=== PATIENT | female | born 1995 | race Hispanic/Latino ===

== ENCOUNTER 2017-11-03 09:38 | Emergency (ER) | payer SELFPAY ==
[2017-11-03 10:47] LABS: #Basophils 0.1 thou/uL (0.0-0.2); #Monocytes 0.5 thou/uL (0.11-0.59); %Basophils 1.2 % (0.0-1.0); %Eosinophils 0.2 % (0.0-10.0); %Lymphocytes 11.2 % (21.0-51.0); %Monocytes 5.3 % (0.0-10.0); Hemoglobin 17.6 g/dL (12.0-16.0); Mean Corpuscular HGB CONC 32.8 g/dL (32.0-36.0); Mean Corpuscular Hemoglobin 28.3 pg (27.0-31.0); Mean Corpuscular Volume 86.2 fl (81.0-99.0); Platelet Count 254 thou/uL (130-400); RBC Distribution Width 12.4 % (11.5-14.5); Red Blood Cell (RBC) Count 6.21 mill/uL (4.20-5.40); White Blood Cell (WBC) Count 8.5 thou/uL (4.8-10.8)
[2017-11-03 11:13] LABS: ALT (SGPT) 33 U/L (8-55); AST (SGOT) 29 U/L (5-34); Albumin 4.8 g/dL (3.5-5.0); Alkaline Phosphatase 85 U/L (40-150); Anion Gap 15 mmol/L (10-20); BUN (Urea Nitrogen) 13 mg/dL (7.0-18.7); Bilirubin, Total 0.6 mg/dL (0.2-1.2); Calc. Creatinine Clearance 0 mL/min (70-130); Calcium 10.1 mg/dL (7.8-10.44); Carbon Dioxide 22 mmol/L (22-29); Chloride 102 mmol/L (98-107); Estimated GFR-MDRD 50; Globulin 3.9 g/dL (2.4-3.5); Glucose 121 mg/dL (70-105); Lipase 13 U/L (8-78); Potassium 3.5 mmol/L (3.5-5.1); Protein, Total 8.7 g/dL (6.0-8.3); Sodium 135 mmol/L (136-145)
[2017-11-03] MEDS ORDERED: Diphenoxylate HCl/Atropine Tablet ONE (11:52)
[2017-11-03] MEDS ORDERED: Acetaminophen 500 MG TAB ONE (12:40)
[2017-11-03 13:39] LABS: Bilirubin Small (Negative); Blood, Urine Negative (Negative); Glucose, Urine (Dipstick) Negative (Negative); Leukocyte Negative (Negative); Nitrite Negative (Negative); Protein, Urine (Dipstick) 100 mg/dL (Neg-Trace); Urobilinogen 0.2 mg/dL (0.2-1.0)
[2017-11-03] MEDS ORDERED: Ondansetron HCl/PF 4 MG/2 ML Vial ONE (13:40)
[2017-11-03 13:42] LABS: Clarity Clear (Clear)
[2017-11-03 13:43] LABS: Pregnancy Test - Urine (BHCG) Negative (Negative); Pregu Control Background? CLEAR/WHITE (CLR/WHITE); Pregu Control Bar Appear? YES (CONTROL BAR); Specific Gravity 1.029 (1.002-1.036); Specific Gravity, Urine 1.029 (1.002-1.036)
[2017-11-03 13:47] LABS: Other Microscopic Description Less than 2 mL rec'd
[2017-11-03 13:48] LABS: Bacteria/HPF None Seen HPF (None Seen); Hyaline Casts/LPF NONE SEEN LPF (0-3 Hyaline); RBC/HPF 0-3 HPF (0-3); Squamous Epithelial 0-3 HPF (0-3); WBC/HPF 0-3 HPF (0-3)
== END 2017-11-03 15:28 | disposition home or self-care (01) ==
LOC: ERS 09:38
DX: R19.7 Diarrhea, unspecified (principal)
CPT/HCPCS: 36415; 80053; 81003; 81015; 81025; 83690; 85025; 87045; 87046; 87449; 87899; 96361; 96374; J2405

== ENCOUNTER 2020-09-26 17:09 | Inpatient (IN) | payer SELFPAY ==
[2020-09-26 18:36] LABS: #Eosinphils 0.1 thou/uL (0.0-0.7); #Lymphocytes 1.9 thou/uL (1.20-3.40); #Monocytes 0.7 thou/uL (0.11-0.59); #Neutrophils 6.7 thou/uL (1.40-6.50); %Basophils 0.2 % (0.0-1.0); %Eosinophils 1.4 % (0.0-10.0); %Lymphocytes 19.9 % (21.0-51.0); %Monocytes 7.4 % (0.0-10.0); %Neutrophils 71.2 % (42.0-75.0); Mean Corpuscular HGB CONC 35.6 g/dL (32.0-36.0); Mean Corpuscular Hemoglobin 28.9 pg (27.0-31.0); Mean Corpuscular Volume 81.2 fL (78.0-98.0); Mean Platelet Volume 8.7 fL (7.4-10.4); Platelet Count 335 thou/uL (130-400); RBC Distribution Width 15.7 % (11.5-14.5); Red Blood Cell (RBC) Count 5.87 mill/uL (4.20-5.40); White Blood Cell (WBC) Count 9.5 thou/uL (4.8-10.8)
--- NOTE | 2020-09-26 18:42 | RAD ---
XR Chest 1 View Portable HISTORY: Hyperglycemia, nausea, vomiting, abdominal pain, weakness, shortness of breath COMPARISON: None FINDINGS: The heart size is normal. The lungs are well expanded without focal areas of consolidation, pneumothorax or pleural effusions. IMPRESSION: No radiographic evidence of acute cardiopulmonary process.
[2020-09-26 19:00] LABS: Bacteria/HPF 1+ HPF (None Seen); Bilirubin Negative (Negative); Blood, Urine 2+ (Negative); Clarity Clear (Clear); Glucose, Urine (Dipstick) Greater than 1000 mg/dL (Negative); Ketone, Urine Greater than 150 mg/dL (Negative); Leukocyte 500 Leu/uL (Negative); Nitrite Negative (Negative); Pregnancy Test - Urine (BHCG) Negative (Negative); Pregu Control Background? CLEAR/WHITE (CLR/WHITE); Pregu Control Bar Appear? YES (CONTROL BAR); Protein, Urine (Dipstick) 50 mg/dL (Neg-Trace); Specific Gravity 1.031 (1.002-1.036); Specific Gravity, Urine 1.031 (1.002-1.036); Squamous Epithelial 0-3 HPF (0-3); Urobilinogen Normal mg/dL (Less than 2); WBC/HPF 21-50 HPF (0-3); pH, Urine 5.5 (5.0-9.0)
[2020-09-26 19:02] LABS: ALT (SGPT) 18 U/L (8-55); AST (SGOT) 14 U/L (5-34); Albumin 4.6 g/dL (3.5-5.0); Alkaline Phosphatase 229 U/L (40-110); Anion Gap 27 mmol/L (10-20); BUN (Urea Nitrogen) 6 mg/dL (7.0-18.7); Bilirubin, Total 0.5 mg/dL (0.2-1.2); CK (CPK) 39 U/L (29-168); Calc. Creatinine Clearance 0 mL/min (70-130); Calcium 9.8 mg/dL (7.8-10.44); Chloride 104 mmol/L (98-107); Globulin 3.4 g/dL (2.4-3.5); Glucose 453 mg/dL (70-105); Magnesium 2.3 mg/dL (1.6-2.6); Potassium 4.6 mmol/L (3.5-5.1); Sodium 135 mmol/L (136-145)
[2020-09-26 19:19] LABS: Carbon Dioxide 9 mmol/L (22-29)
[2020-09-26] MEDS ORDERED: INSULIN REGULAR IN 0.9 % NACL 100 UNIT/100 ML BAG ONE (20:16)
[2020-09-26] MEDS ORDERED: NS 0.9% w/ 20 MEQ KCL 1,000 ML/1,000 ML BAG IV PRN (21:45)
[2020-09-26] MEDS ORDERED: Electrolyte Replacement Protocol 1 EACH IVPB ONE (22:06)
[2020-09-26] MEDS ORDERED: NS 0.9% w/ 20 MEQ KCL 1,000 ML IV PRN ×2 (22:06)
[2020-09-26] MEDS ORDERED: D5 1/2 NS w/20 mEq KCL 1,000 ML IV PRN (22:06)
[2020-09-26] MEDS ORDERED: Sodium Chloride 0.9% 1,000 ML IV PRN ×4 (22:06)
[2020-09-26] MEDS ORDERED: Dextrose 5 %-0.45 % NaCl 1,000 ML IV PRN (22:06)
[2020-09-26] MEDS ORDERED: HYDROcodone/Acetaminophen 5/325 mg Tablet PO PRN (22:07)
[2020-09-26] MEDS ORDERED: Promethazine HCl 12.5 MG in Sodium Chloride 0.9% 50 ML IVPB PRN (22:07)
[2020-09-26] MEDS ORDERED: Guaifenesin DM 100-10/5 ML UDCUP PO PRN (22:07)
[2020-09-26] MEDS ORDERED: Ondansetron PF 4 MG/2 ML Vial IVP PRN (22:07)
[2020-09-26] MEDS ORDERED: Morphine 2 MG/ML VIAL SLOW IVP PRN (22:07)
[2020-09-26] MEDS ORDERED: Labetalol HCl 100 MG/20 ML VIAL SLOW IVP PRN (22:07)
[2020-09-26] MEDS ORDERED: hydrALAZINE 20 MG/ML VIAL SLOW IVP PRN (22:07)
[2020-09-26] MEDS ORDERED: cloNIDine 0.1 MG TAB PO PRN (22:07)
[2020-09-26 22:52] VITALS: BMI 46.4
[2020-09-26 22:54] LABS: Anion Gap 24 mmol/L (10-20); BUN (Urea Nitrogen) 5 mg/dL (7.0-18.7); Calc. Creatinine Clearance 166 mL/min (70-130); Calcium 8.9 mg/dL (7.8-10.44); Chloride 112 mmol/L (98-107); Glucose 166 mg/dL (70-105); Potassium 3.5 mmol/L (3.5-5.1); Sodium 141 mmol/L (136-145)
[2020-09-26 23:05] LABS: Carbon Dioxide 9 mmol/L (22-29)
[2020-09-26 23:12] LABS: BHCG - Serum Negative (NEGATIVE); Pregs Control Background? CLEAR/WHITE (CLR/WHITE); Pregs Control Bar Appear? YES (CONTROL BAR)
--- NOTE | 2020-09-26 23:23 | PDOC.HHP ---
Hospitalist HPI - History of Present Illness nausea, vomiting, abdominal pain History of Present Illness: Patient is a 25 year old female with PMH preeclampsia who presents to ED for nausea, vomiting, abdominal pain, weakness, SOB x 2 days. In ED, blood sugar checked and 384, she has FH of DM but denies personal history of DM or GDM. In ED, labs significant for CO2 of 9, anion gap 27, cr 1.44, glucose elevated, UA positive for UTI, CXR negative, patient to be admitted for new DM and DKA. Hospitalist ROS - Review of Systems Constitutional: reports: weakness, malaise Eyes: denies: pain, vision change, conjunctivae inflammation, eyelid inflammation, redness, other ENT: denies: ear pain, ear discharge, nose pain, nose discharge, nose congestion, mouth pain, mouth swelling, throat pain, throat swelling, other Respiratory: denies: cough, dry, shortness of breath, hemoptysis, SOB with excertion, pleuritic pain, sputum, wheezing, other Cardiovascular: denies: chest pain, palpitations, orthopnea, paroxysmal noc. dyspnea, edema, light headedness, other Gastrointestinal: denies: nausea, vomiting, abdominal pain, diarrhea, constipation, melena, hematochezia, other Genitourinary: reports: dysuria. denies: frequency, incontinence, hematuria, retention, other Musculoskeletal: denies: neck pain, shoulder pain, arm pain, back pain, hand pain, leg pain, foot pain, other Skin: denies: rash, lesions, mary ellen, bruising, other Neurological: denies: weakness, numbness, incoordination, change in speech, confusion, seizures, other All other systems reviewed; all pertinent +/- noted in HPI/Subj - Medication Medications: none Hospitalist History - Past Medical History Other Medical History: preeclampsia - Past Surgical History Past Surgical History: reports: no pertinent history - Family History Family History: reports: no pertinent history - Social History Smoking Status: Never smoker Alcohol: reports: None Drugs: reports: none - Exam General Appearance: NAD, awake alert Eye: PERRL, anicteric sclera ENT: normocephalic atraumatic, no oropharyngeal lesions, moist mucosa Neck: supple, symmetric, no JVD, no thyromegaly, no lymphadenopathy, no carotid bruit Heart: RRR, no murmur, no gallops, no rubs, normal peripheral pulses Respiratory: CTAB, no wheezes, no rales, no ronchi, normal chest expansion, no tachypnea, normal percussion Gastrointestinal: soft, non-tender, non-distended, normal bowel sounds, no palpable masses, no hepatomegaly, no splenomegaly, no bruit Extremities: no cyanosis, no clubbing, no edema Skin: normal turgor, no lesions, no rashes Neurological: cranial nerve grossly intact, normal sensation to touch, no weakness, no focal deficits, no new deficit Musculoskeletal: normal tone, normal strength, no muscle wasting Psychiatric: normal affect, normal behavior, A&O x 3 Hospitalist Results - Labs Result Diagrams: 09/26/20 18:18 09/26/20 22:27 Lab results: WBC 9.5 thou/uL (4.8-10.8) 09/26/20 18:18 Hgb 17.0 g/dL (12.0-16.0) H 09/26/20 18:18 Hct 47.7 % (36.0-47.0) H 09/26/20 18:18 MCV 81.2 fL (78.0-98.0) 09/26/20 18:18 Plt Count 335 thou/uL (130-400) 09/26/20 18:18 Neutrophils % 71.2 % (42.0-75.0) 09/26/20 18:18 Sodium 141 mmol/L (136-145) 09/26/20 22:27 Potassium 3.5 mmol/L (3.5-5.1) 09/26/20 22:27 Chloride 112 mmol/L (98-107) H 09/26/20 22:27 Carbon Dioxide 9 mmol/L (22-29) L* 09/26/20 22:27 BUN 5 mg/dL (7.0-18.7) L 09/26/20 22:27 Creatinine 1.02 mg/dL (0.6-1.1) 09/26/20 22:27 Glucose 166 mg/dL (70-105) H 09/26/20 22:27 Calcium 8.9 mg/dL (7.8-10.44) 09/26/20 22:27 Total Bilirubin 0.5 mg/dL (0.2-1.2) 09/26/20 18:18 AST 14 U/L (5-34) 09/26/20 18:18 ALT 18 U/L (8-55) 09/26/20 18:18 Alkaline Phosphatase 229 U/L (40-110) H 09/26/20 18:18 Creatine Kinase 39 U/L (29-168) 09/26/20 18:18 Troponin I Less than 0.010 ng/mL (< 0.028) 09/26/20 18:18 Serum Total Protein 8.0 g/dL (6.0-8.3) 09/26/20 18:18 Albumin 4.6 g/dL (3.5-5.0) 09/26/20 18:18 Urine Ketones Greater than 150 mg/dL (Negative) A 09/26/20 18:36 Urine Blood 2+ (Negative) A 09/26/20 18:36 Urine Nitrite Negative (Negative) 09/26/20 18:36 Ur Leukocyte Esterase 500 Nuria/uL (Negative) A 09/26/20 18:36 Urine RBC 11-20 HPF (0-3) A 09/26/20 18:36 Urine WBC 21-50 HPF (0-3) A 09/26/20 18:36 Ur Squamous Epith Cells 0-3 HPF (0-3) 09/26/20 18:36 Urine Bacteria 1+ HPF (None Seen) A 09/26/20 18:36 Additional comment: VITAL SIGNS Fri Sep 26, 2020 17:12 HUMBERTO Thompson, Janice BP: 133/93 Pulse: 115 Resp: 20 Temp: 98.0 (Oral) Pain: 0 O2 sat: 98 on (Room Air) Time: 09/26/2020 17:12. Hospitalist H&P A/P - Plan Plan: Patient is a 25 year old female with PMH preeclampsia who presents to ED for nausea, vomiting, abdominal pain, weakness, SOB x 2 days. # DKA # new onset DM # UTI # FLORENCE - nausea, vomiting, abdominal pain, weakness, SOB x 2 days, blood sugar 384 in ED, she has FH of DM but denies personal history of DM or GDM. In ED, labs significant for CO2 of 9, anion gap 27, cr 1.44, glucose elevated, UA positive for UTI, CXR negative, patient to be admitted for new DM and DKA. - admit to IMCU - insulin gtt - ceftriaxone # DVT/GI ppx
[2020-09-26] MEDS: HUMULIN R 100 UNITS in Sodium Chloride 0.9% 100 ML IVPB SCH (23:35)
[2020-09-27 02:51] LABS: Anion Gap 21 mmol/L (10-20); BUN (Urea Nitrogen) 4 mg/dL (7.0-18.7); Calc. Creatinine Clearance 184 mL/min (70-130); Calcium 8.3 mg/dL (7.8-10.44); Chloride 114 mmol/L (98-107); Glucose 180 mg/dL (70-105); Potassium 3.5 mmol/L (3.5-5.1); Sodium 139 mmol/L (136-145)
[2020-09-27 02:58] LABS: Carbon Dioxide 8 mmol/L (22-29)
[2020-09-27] MEDS: HUMULIN R 100 UNITS in Sodium Chloride 0.9% 100 ML IVPB SCH ×2 (03:03→04:02)
[2020-09-27 04:16] LABS: SARS-CoV-2 PCR by NAA Not Detected (NotDetected)
[2020-09-27] MEDS ORDERED: Midazolam HCl 5 mg/ml Vial ONE (04:27)
[2020-09-27] MEDS ORDERED: HYDROcodone/Acetaminophen 5/325 mg Tablet ONE (05:32)
[2020-09-27 06:24] LABS: #Eosinphils 0.1 thou/uL (0.0-0.7); #Monocytes 0.6 thou/uL (0.11-0.59); #Neutrophils 5.2 thou/uL (1.40-6.50); %Basophils 0.3 % (0.0-1.0); %Lymphocytes 25.7 % (21.0-51.0); %Monocytes 7.8 % (0.0-10.0); %Neutrophils 65.2 % (42.0-75.0); Hemoglobin 14.4 g/dL (12.0-16.0); Mean Corpuscular HGB CONC 34.4 g/dL (32.0-36.0); Mean Corpuscular Hemoglobin 28.1 pg (27.0-31.0); Mean Corpuscular Volume 81.7 fL (78.0-98.0); Mean Platelet Volume 8.2 fL (7.4-10.4); Platelet Count 257 thou/uL (130-400); RBC Distribution Width 15.9 % (11.5-14.5); Red Blood Cell (RBC) Count 5.12 mill/uL (4.20-5.40); White Blood Cell (WBC) Count 7.9 thou/uL (4.8-10.8)
[2020-09-27 06:39] LABS: Anion Gap 19 mmol/L (10-20); BUN (Urea Nitrogen) Less than 4 mg/dL (7.0-18.7); Calc. Creatinine Clearance 174 mL/min (70-130); Calcium 8.2 mg/dL (7.8-10.44); Chloride 112 mmol/L (98-107); Glucose 347 mg/dL (70-105); Potassium 3.3 mmol/L (3.5-5.1); Sodium 136 mmol/L (136-145)
[2020-09-27 06:40] LABS: Anion Gap 19 mmol/L (10-20); BUN (Urea Nitrogen) Less than 4 mg/dL (7.0-18.7); Calc. Creatinine Clearance 167 mL/min (70-130); Calcium 8.3 mg/dL (7.8-10.44); Chloride 111 mmol/L (98-107); Glucose 348 mg/dL (70-105); Magnesium 1.9 mg/dL (1.6-2.6); Potassium 3.2 mmol/L (3.5-5.1); Sodium 136 mmol/L (136-145)
[2020-09-27 06:45] LABS: Carbon Dioxide 8 mmol/L (22-29)
[2020-09-27 06:46] LABS: Carbon Dioxide 9 mmol/L (22-29)
[2020-09-27] MEDS ORDERED: INSULIN REGULAR IN 0.9 % NACL 100 UNIT/100 ML BAG ONE (07:36)
[2020-09-27] MEDS ORDERED: Famotidine 20 MG TAB ONE (07:51)
[2020-09-27] MEDS: Famotidine 20 MG TAB PO SCH ×2 (08:09→19:26)
[2020-09-27] MEDS ORDERED: FLU VACC QS2020-21(6MOS UP)/PF 60 MCG/0.5 ML SYRINGE IM ONE (09:00)
[2020-09-27] MEDS: Heparin 5,000 UNITS/ML VIAL SC SCH ×2 (11:13→21:08)
[2020-09-27 12:15] LABS: Anion Gap 19 mmol/L (10-20); BUN (Urea Nitrogen) Less than 4 mg/dL (7.0-18.7); Calc. Creatinine Clearance 199 mL/min (70-130); Calcium 8.6 mg/dL (7.8-10.44); Carbon Dioxide 10 mmol/L (22-29); Chloride 114 mmol/L (98-107); Glucose 139 mg/dL (70-105); Potassium 3.6 mmol/L (3.5-5.1); Sodium 139 mmol/L (136-145)
[2020-09-27] MEDS ORDERED: Dextrose 5% in Water 1,000 ML IV PRN (12:58)
[2020-09-27] MEDS ORDERED: Dextrose 50% Abboject 50 ML SYRINGE SLOW IVP PRN (12:58)
[2020-09-27] MEDS ORDERED: Insulin Regular 300 UNITS/3 ML VIAL ONE (14:56)
[2020-09-27] MEDS: Insulin Regular 300 UNITS/3 ML VIAL SC PRN ×2 (15:04→21:08)
--- NOTE | 2020-09-27 15:15 | PDOC.HOSPP ---
- Subjective Encounter Date: 09/27/20 Encounter Time: 15:09 Subjective: This is a 25-year-old woman who was admitted to the hospital with nausea, vomiting. She has evidence of a urinary tract infection and acute kidney injury. She also was found to have new onset diabetes. She had anion gap me tabolic acidosis. She has been receiving insulin drip and her electrolytes seems to be improving. We will recheck her BMP and make adjustments to her insulin regimen. She is on IV Rocephin for the UTI. Her renal function appears back to baseline. - Objective Vital Signs & Weight: Vital Signs (12 hours) Temp Pulse Resp BP Pulse Ox 09/27/20 06:00 98.9 F 20 126/94 H 97 09/27/20 04:10 97 09/27/20 04:02 98.3 F 82 18 129/78 97 Weight Admit Weight 279 lb 1.683 oz Weight 279 lb 1.683 oz I&O: 09/26/20 09/27/20 09/28/20 06:59 06:59 06:59 Intake Total 2100 100 Output Total 1300 300 Balance 800 -200 Result Diagrams: 09/27/20 06:10 09/27/20 11:41 Additional Labs: Accuchecks 09/27/20 09/27/20 09/27/20 14:54 13:37 12:24 POC Glucose 246 H 88 113 H 09/27/20 09/27/20 09/27/20 10:55 09:42 07:02 POC Glucose 138 H 169 H 256 H 09/27/20 09/27/20 09/27/20 05:14 04:02 03:09 POC Glucose 313 H 275 H 224 H 09/27/20 09/27/20 09/26/20 01:34 00:26 21:43 POC Glucose 152 H 106 H 240 H Radiology Reviewed by me: Yes EKG Reviewed by me: Yes Hospitalist ROS - Review of Systems Constitutional: reports: weakness Genitourinary: reports: dysuria Neurological: reports: weakness - Medication Medications: Active Medications Generic Name Dose Route Start Last Admin Trade Name Freq PRN Reason Stop Dose Admin Hydrocodone Bitart/Acetaminophen 1 tab 09/26/20 22:07 09/27/20 05:36 Hydrocodone/Acetaminophen 5/325 Mg Tablet PO 1 tab Q4H PRN Administration Moderate Pain (4-6) Famotidine 20 mg 09/27/20 09:00 09/27/20 08:09 Famotidine 20 Mg Tab PO 20 mg BID DEVIN Administration Heparin Sodium (Porcine) 5,000 units 09/27/20 09:00 09/27/20 11:13 Heparin 5,000 Units/Ml Vial SC 5,000 units BID DEVIN Administration Potassium Chloride/Dextrose/Sod Cl 1,000 mls @ 250 mls/hr 09/26/20 22:06 09/27/20 03:21 D5 1/2 Ns W/20 Meq Kcl IV 1,000 mls .Q4H PRN Administration Step 4 of DKA Protocol Protocol Potassium Chloride/Sodium Chloride 1,000 mls @ 500 mls/hr 09/26/20 22:06 09/27/20 00:11 Ns 0.9% W/ 20 Meq Kcl IV 1,000 mls .Q2H PRN Administration Step 2 of DKA Protocol Protocol Insulin Human Regular 100 101 mls @ 0 mls/hr 09/26/20 22:15 09/27/20 04:02 units/ Sodium Chloride IVPB 101 mls INF DEVIN Administration Protocol Titrate - Exam General Appearance: awake alert Eye: PERRL, anicteric sclera ENT: normocephalic atraumatic, no oropharyngeal lesions Neck: supple, symmetric, no JVD Heart: RRR, no murmur Respiratory: CTAB, no wheezes, no rales Gastrointestinal: soft, non-tender, non-distended, normal bowel sounds Neurological: cranial nerve grossly intact, normal sensation to touch Musculoskeletal: normal tone Psychiatric: normal affect, normal behavior, A&O x 3 Hosp A/P (1) UTI (urinary tract infection) Status: Acute Qualifiers: Urinary tract infection type: acute cystitis Hematuria presence: with hematuria Qualified Code(s): N30.01 - Acute cystitis with hematuria Plan: She is on IV Rocephin. Follow-up urine culture. (2) FLORENCE (acute kidney injury) Code(s): N17.9 - ACUTE KIDNEY FAILURE, UNSPECIFIED Status: Acute Plan: This has resolved. Likely volume contraction in the context of nausea and vomiting. (3) New onset type 1 diabetes mellitus, uncontrolled Code(s): E10.65 - TYPE 1 DIABETES MELLITUS WITH HYPERGLYCEMIA Status: Acute Plan: She is on insulin sliding scale coverage.
[2020-09-27 16:43] LABS: Anion Gap 18 mmol/L (10-20); BUN (Urea Nitrogen) Less than 4 mg/dL (7.0-18.7); Calc. Creatinine Clearance 192 mL/min (70-130); Calcium 8.4 mg/dL (7.8-10.44); Carbon Dioxide 13 mmol/L (22-29); Chloride 106 mmol/L (98-107); Glucose 287 mg/dL (70-105); Sodium 134 mmol/L (136-145)
[2020-09-27 16:52] LABS: Potassium 2.8 mmol/L (3.5-5.1)
[2020-09-27] MEDS ORDERED: Potassium Chloride 20 MEQ TAB PO SCH (17:15)
[2020-09-27] MEDS: Polyethylene Glycol 3350 17 GM Packet PO SCH (17:37)
[2020-09-27] MEDS ORDERED: Potassium Chloride 20 MEQ TAB ONE (17:39)
[2020-09-27] MEDS: Sodium Chloride 0.9% 1,000 ML IV SCH (18:55)
[2020-09-27] MEDS ORDERED: Potassium Bicarbonate/Cit Ac 20 MEQ TAB PO SCH (19:15)
[2020-09-27] MEDS: cefTRIAXone\\ROCEPHIN 1 GM in Sodium Chloride 0.9% 100 ML IVPB SCH (23:43)
[2020-09-28] MEDS ORDERED: Insulin Regular 300 UNITS/3 ML VIAL SC PRN (00:02)
[2020-09-28 05:15] LABS: Base Excess-Venous -18.3 mmol/L (-2.0 to 3.0); Bicarbonate (HCO3v) 9.4 mmol/L (22.0-28.0); CO2 Tension (PvCO2) 28.3 mmHg (40.0-50.0); Calcium, Ionized 1.28 mmol/L (1.15-1.33); Chloride 115 mmol/L (98-107); Hemoglobin - Calc 16.7 g/dL (12.0-16.0); Potassium 2.7 mmol/L (3.5-5.1); Sodium 140 mmol/L (138-145); T. Carbon Dioxide 10.3 mmol/L (22.0-28.0); vO2 Saturation-calc 27.6 % (60.0-85.0)
[2020-09-28] MEDS: Insulin Regular 300 UNITS/3 ML VIAL SC PRN ×3 (05:44→17:09)
[2020-09-28 06:01] LABS: #Eosinphils 0.1 thou/uL (0.0-0.7); #Monocytes 0.6 thou/uL (0.11-0.59); #Neutrophils 2.2 thou/uL (1.40-6.50); %Basophils 0.8 % (0.0-1.0); %Eosinophils 2.3 % (0.0-10.0); %Lymphocytes 40.5 % (21.0-51.0); %Monocytes 12.3 % (0.0-10.0); %Neutrophils 44.2 % (42.0-75.0); Hemoglobin 13.9 g/dL (12.0-16.0); Mean Corpuscular HGB CONC 35.2 g/dL (32.0-36.0); Mean Corpuscular Hemoglobin 28.4 pg (27.0-31.0); Mean Corpuscular Volume 80.8 fL (78.0-98.0); Mean Platelet Volume 8.2 fL (7.4-10.4); Platelet Count 230 thou/uL (130-400); RBC Distribution Width 15.5 % (11.5-14.5); Red Blood Cell (RBC) Count 4.87 mill/uL (4.20-5.40); White Blood Cell (WBC) Count 4.9 thou/uL (4.8-10.8)
[2020-09-28 06:26] LABS: Anion Gap 19 mmol/L (10-20); BUN (Urea Nitrogen) Less than 4 mg/dL (7.0-18.7); Calc. Creatinine Clearance 192 mL/min (70-130); Calcium 8.2 mg/dL (7.8-10.44); Carbon Dioxide 18 mmol/L (22-29); Chloride 102 mmol/L (98-107); Glucose 298 mg/dL (70-105); Magnesium 1.6 mg/dL (1.6-2.6); Sodium 136 mmol/L (136-145)
[2020-09-28 06:29] LABS: Potassium 2.8 mmol/L (3.5-5.1)
[2020-09-28] MEDS: Sodium Chloride 0.9% 1,000 ML IV SCH (08:44)
[2020-09-28] MEDS: Famotidine 20 MG TAB PO SCH ×2 (08:45→21:16)
[2020-09-28] MEDS: Heparin 5,000 UNITS/ML VIAL SC SCH ×2 (08:45→21:16)
[2020-09-28] MEDS: Insulin Glargine 15 UNITS in Pre-Filled Syringe 1 EACH SC SCH (08:47)
[2020-09-28] MEDS: Potassium Bicarbonate/Cit Ac 20 MEQ TAB PO SCH ×2 (08:50→13:15)
[2020-09-28] MEDS: Polyethylene Glycol 3350 17 GM Packet PO SCH (11:22)
--- NOTE | 2020-09-28 12:37 | PDOC.HOSPP ---
- Subjective Encounter Date: 09/28/20 Encounter Time: 12:36 Subjective: Clinically she seems to be doing really well. Her blood sugar however has remained uncontrolled for the most part. I am going to change her to moderate sliding scale coverage. I am also going to add 10 units of Lantus for nighttime and she will remain on 15 units in the morning. She likely is going to need insulin on discharge. - Objective Vital Signs & Weight: Vital Signs (12 hours) Temp Pulse Resp BP BP Pulse Ox 09/28/20 11:02 97.5 F L 90 16 115/81 98 09/28/20 07:55 97.5 F L 86 16 115/79 96 09/28/20 04:04 97.3 F L 73 16 103/69 97 Weight Admit Weight 279 lb 1.683 oz Weight 279 lb 1.683 oz I&O: 09/27/20 09/28/20 09/29/20 06:59 06:59 06:59 Intake Total 2100 1750 Output Total 1300 300 Balance 800 1450 Result Diagrams: 09/28/20 05:42 09/28/20 05:42 Additional Labs: Accuchecks 09/28/20 09/28/20 09/27/20 11:04 05:34 20:59 POC Glucose 333 H 272 H 343 H 09/27/20 09/27/20 14:54 13:37 POC Glucose 246 H 88 Radiology Reviewed by me: Yes EKG Reviewed by me: Yes Hospitalist ROS - Review of Systems Constitutional: reports: weakness Gastrointestinal: reports: nausea - Medication Medications: Active Medications Generic Name Dose Route Start Last Admin Trade Name Marcio PRN Reason Stop Dose Admin Hydrocodone Bitart/Acetaminophen 1 tab 09/26/20 22:07 09/27/20 05:36 Hydrocodone/Acetaminophen 5/325 Mg Tablet PO 1 tab Q4H PRN Administration Moderate Pain (4-6) Famotidine 20 mg 09/27/20 09:00 09/28/20 08:45 Famotidine 20 Mg Tab PO 20 mg BID DEVIN Administration Heparin Sodium (Porcine) 5,000 units 09/27/20 09:00 09/28/20 08:45 Heparin 5,000 Units/Ml Vial SC 5,000 units BID DEVIN Administration Insulin Human Regular 100 101 mls @ 0 mls/hr 09/26/20 22:15 09/27/20 04:02 units/ Sodium Chloride IVPB 101 mls INF DEVIN Administration Protocol Titrate Ceftriaxone Sodium 1 gm/ 100 mls @ 200 mls/hr 09/27/20 23:00 09/27/20 23:43 Sodium Chloride IVPB 100 mls 2300 DEVIN Administration Insulin Glargine 15 units/ 0.15 mls @ 0 mls/hr 09/28/20 09:00 09/28/20 08:47 Miscellaneous Medication SC 0.15 mls QAM DEVIN Administration Sodium Chloride 1,000 mls @ 75 mls/hr 09/27/20 17:15 09/28/20 08:44 Normal Saline 0.9% IV 09/28/20 19:54 1,000 mls .[id number] DEVIN Administration Insulin Human Regular 0 units 09/28/20 11:45 09/28/20 11:43 Insulin Regular 300 Units/3 Ml Vial SC 8 unit .MODERATE SLIDING SC PRN Administration MODERATE SLIDING SCALE Protocol Polyethylene Glycol 17 gm 09/27/20 09:00 09/28/20 11:22 Polyethylene Glycol 3350 17 Gm Packet PO Not Given DAILY DEVIN - Exam General Appearance: NAD, awake alert Eye: PERRL, anicteric sclera ENT: normocephalic atraumatic, no oropharyngeal lesions Neck: supple, symmetric, no JVD Heart: RRR, no murmur, no gallops Respiratory: CTAB, no wheezes Gastrointestinal: soft, non-tender, non-distended, normal bowel sounds, no hepatomegaly Neurological: cranial nerve grossly intact, normal sensation to touch Musculoskeletal: normal tone Psychiatric: normal affect, normal behavior, A&O x 3 Hosp A/P (1) New onset type 1 diabetes mellitus, uncontrolled Code(s): E10.65 - TYPE 1 DIABETES MELLITUS WITH HYPERGLYCEMIA Status: Acute Plan: Blood sugar remains uncontrolled for the most part. I am going to increase her to moderate scale and will add evening Lantus dose. She will likely need insulin on discharge. I am going to check hemoglobin A1c. (2) UTI (urinary tract infection) Status: Acute Qualifiers: Urinary tract infection type: acute cystitis Hematuria presence: with hematuria Qualified Code(s): N30.01 - Acute cystitis with hematuria Plan: It appears the cultures were never sent on admission but she is on Rocephin and seems to be doing well so far. (3) FLORENCE (acute kidney injury) Code(s): N17.9 - ACUTE KIDNEY FAILURE, UNSPECIFIED Status: Acute - Plan old records reviewed/req, PT/OT
[2020-09-28] MEDS ORDERED: Insulin Glargine 10 UNITS in Pre-Filled Syringe SC SCH (21:00)
[2020-09-28] MEDS: cefTRIAXone\\ROCEPHIN 1 GM in Sodium Chloride 0.9% 100 ML IVPB SCH (22:07)
[2020-09-29 05:47] LABS: Hemoglobin 13.7 g/dL (12.0-16.0); Mean Corpuscular HGB CONC 33.8 g/dL (32.0-36.0); Mean Corpuscular Hemoglobin 27.3 pg (27.0-31.0); Mean Corpuscular Volume 80.8 fL (78.0-98.0); Mean Platelet Volume 8.3 fL (7.4-10.4); Platelet Count 222 thou/uL (130-400); RBC Distribution Width 15.3 % (11.5-14.5); Red Blood Cell (RBC) Count 5.01 mill/uL (4.20-5.40); White Blood Cell (WBC) Count 5.1 thou/uL (4.8-10.8)
[2020-09-29 05:50] LABS: Hemoglobin A1c 11.8 % (4.0-6.0)
[2020-09-29 06:06] LABS: Anion Gap 18 mmol/L (10-20); BUN (Urea Nitrogen) Less than 4 mg/dL (7.0-18.7); Calc. Creatinine Clearance 201 mL/min (70-130); Calcium 8.3 mg/dL (7.8-10.44); Carbon Dioxide 26 mmol/L (22-29); Chloride 98 mmol/L (98-107); Glucose 303 mg/dL (70-105); Magnesium 1.7 mg/dL (1.6-2.6); Sodium 139 mmol/L (136-145)
[2020-09-29] MEDS: Insulin Regular 300 UNITS/3 ML VIAL SC PRN ×3 (06:12→15:53)
[2020-09-29 06:19] LABS: Potassium 2.8 mmol/L (3.5-5.1)
[2020-09-29] MEDS ORDERED: Potassium Bicarbonate/Cit Ac 20 MEQ TAB PO SCH (07:00)
[2020-09-29] MEDS: Famotidine 20 MG TAB PO SCH (08:16)
[2020-09-29] MEDS: Heparin 5,000 UNITS/ML VIAL SC SCH (08:16)
[2020-09-29] MEDS: Polyethylene Glycol 3350 17 GM Packet PO SCH (08:16)
[2020-09-29] MEDS ORDERED: Magnesium 2 GM/50 ML 2 GM in Premix Bag 1 BAG IVPB SCH (08:45)
[2020-09-29] MEDS ORDERED: Potassium Chloride 20 MEQ TAB PO SCH (09:00)
[2020-09-29] MEDS: Insulin Glargine 15 UNITS in Pre-Filled Syringe 1 EACH SC SCH (10:01)
[2020-09-29 10:29] LABS: Band 10 % (5-11); Eosinophils 3 % (0-10); Lymphocytes 32 % (21-51); MDiff Complete? YES; Monocytes 9 % (0-10); Myelocyte 1 % (0-0); Neutrophil 27 % (42-75); Platelet Morphology Comment Appears Adequate; RBC Morphology Normal; Reactive Lymphocytes 18 % (0-10)
--- NOTE | 2020-09-29 14:04 | PDOC.DS.DS ---
Provider - Provider Date of Admission: 09/26/20 20:55 Date of Discharge: 09/29/20 Admitting Provider: Abdifatah Youssef MD Primary Care Physician: NO PCP PROVIDER Course - Hospital Course Hospital Course: This patient is a 25-year-old woman who presented to the hospital with nausea and vomiting have evidence of new onset of diabetes. She also had urinary tract infection and she was hospitalized for further stabilization. She was placed on insulin protocol for diabetic ketoacidosis. Her anion gap eventually closed. She was transitioned over to subcutaneous insulin. She also was treated for her UTI with intravenous Rocephin. Over the course of her stay she has stabilized enough and she is going to be discharged home today. She will follow-up with her PCP. She will complete 5 more days of oral Levaquin. Resuscitation Status: 09/26/20 22:07 Resuscitation Status Routine Resuscitation Status: FULL: Full Resuscitation - Labs Lab Results: 09/29/20 05:08 09/29/20 05:08 Abnormal Lab Results - Last 48 hrs 09/26/20 21:19: POC Venous Hct 49.0 H, POC Bicarbonate Calc 9.4 L*, VBG pCO2 28.3 L, VBG pO2 23.6 L, POC VBG CO2 (Calc) 10.3 L, POC VBG O2 Sat (Calc) 27.6 L, POC VBG Hemoglobin Calc 16.7 H, POC Venous Potassium 2.7 L*, POC Venous Chloride 115 H 09/27/20 16:02: Sodium 134 L, Potassium 2.8 L*, Carbon Dioxide 13 L, BUN Less than 4 L 09/28/20 05:42: Potassium 2.8 L*, Carbon Dioxide 18 L, BUN Less than 4 L 09/28/20 05:42: RDW 15.5 H, Monocytes % 12.3 H, Monocytes # 0.6 H 09/29/20 05:08: Potassium 2.8 L*, BUN Less than 4 L 09/29/20 05:08: RDW 15.3 H, Neutrophils % (Manual) 27 L, Reactive Lymphs % 18 H, Myelocytes % 1 H 09/29/20 05:08: Hemoglobin A1c 11.8 H - Physical Exam Vitals: Vital Signs (12 hours) Temp Pulse Resp BP Pulse Ox 09/29/20 11:27 97.9 F 87 14 113/80 96 09/29/20 08:11 98.6 F 82 12 103/71 97 Weight Admit Weight 279 lb 1.683 oz Weight 279 lb 1.683 oz Physical Exam: The patient was seen and examined on the day of discharge. Problem - Problem (1) New onset type 1 diabetes mellitus, uncontrolled Code(s): E10.65 - TYPE 1 DIABETES MELLITUS WITH HYPERGLYCEMIA Status: Acute (2) UTI (urinary tract infection) Status: Acute Qualifiers: Urinary tract infection type: acute cystitis Hematuria presence: with h ematuria Qualified Code(s): N30.01 - Acute cystitis with hematuria (3) [place]OR[place] (acute kidney injury) Code(s): N17.9 - ACUTE KIDNEY FAILURE, UNSPECIFIED Status: Acute - Time spent with Patient (mins): 30 Plan - Discharge Medications Prescriptions: Levofloxacin [Levaquin] 250 mg PO DAILY #5 tab Insulin NPH Hum/Reg Insulin HM [Novolin 70-30 Flexpen] 15 unit SQ BID #5 insuln.pen Home Medications: Medication Instructions Recorded Confirmed Type HYDROcodone Bit/APAP 5/325 [Luverne] 1 tab PO Q4H PRN tab 09/29/20 Rx Insulin NPH Hum/Reg Insulin HM 15 unit SQ BID #5 insuln.pen 09/29/20 Rx [Novolin 70-30 Flexpen] Levofloxacin [Levaquin] 250 mg PO DAILY #5 tab 09/29/20 Rx Allergies: No Known Allergies Allergy (Verified 09/28/20 05:30) - Discharge Instructions Activity:: Activity as Tolerated, Activity Restrictions Nourishment:: Diabetic Diet Therapies:: Not Applicable Equipment/Supplies:: Not Applicable IV Therapy:: Not Applicable - Follow up Plan Referrals: PROVIDER,NO PCP [Primary Care Provider] - Disposition: HOME Quality - Care Measures CORE MEASURES:: N/A
[2020-09-29 17:17] VITALS: BP 115/84; TEMP 98.1
== END 2020-09-29 17:51 | disposition home or self-care (01) | DRG 689 ==
LOC: ERS 17:09 → ERHOLD 20:55 → SURG A 09-27 18:30
PROVIDERS: ADMIT Internal Medicine; ATTEND Hospitalist
DX: N30.01 Acute cystitis with hematuria (principal); E10.10 Type 1 diabetes mellitus with ketoacidosis without coma; N17.9 Acute kidney failure, unspecified; Z20.822 Contact with and (suspected) exposure to COVID-19; Z28.21 Immunization not carried out because of patient refusal
CPT/HCPCS: 36415; 36416; 71045; 80048; 80053; 81003; 81015; 81025; 82010; 82330; 82550; 82803; 83036; 83735; 84484; 84703; 85025; 87635; 93005; 96365; 96366; J0696; J1644; J1815; J2250; J3475; J3480; J3490; U0003; U0005